=== PATIENT | male | born 1990 | race Two or more races ===

== ENCOUNTER 2022-02-09 14:12 | Emergency (ER) | payer OTHER ==
[~2022-02-09] VITALS: Ht 180.3 cm; Wt 163.3 kg
--- NOTE | 2022-02-09 14:20 | NUR ---
EKG DONE AT BED SIDE
--- NOTE | 2022-02-09 14:25 | NUR ---
RECIVED PT 32 YRS MALE WALKING IN C/O CHEST PAIN SINCE YESTERDAY SEEN BY [facility] YESTERDAY
[2022-02-09] MEDS ORDERED: ASPIRIN 325 MG TABLET ONE ×2 (14:30→14:37)
--- NOTE | 2022-02-09 14:35 | NUR ---
SEEN BY DR. JENSEN
--- NOTE | 2022-02-09 14:45 | NUR ---
BLOOD DROW AND SENT TO LAB
[2022-02-09] MEDS ORDERED: ASPIRIN EC 325 MG TABLET.DR PO ONE (15:00)
[2022-02-09 15:12] LABS: BASOPHILS # (AUTO) 0.1 K/uL (0.0-0.2); BASOPHILS % (AUTO) 1.1 % (0.0-2.0); HEMATOCRIT 44 % (39-51); HEMOGLOBIN 14.9 g/dL (13.5-17.5); LYMPHOCYTES # (AUTO) 2.3 K/uL (0.8-4.8); LYMPHOCYTES % (AUTO) 28.7 % (20.0-44.0); MEAN CORPUSCULAR HGB CONC 34 g/dl (31.0-36.0); MEAN CORPUSCULAR VOLUME 89 fL (80-96); MONOCYTES # (AUTO) 0.8 K/uL (0.1-1.30); MONOCYTES % (AUTO) 10.3 % (2.0-12.0); NEUTROPHILS # (AUTO) 4.6 K/uL (1.8-8.9); NEUTROPHILS % (AUTO) 56.9 % (43.0-81.0); PLATELET COUNT (AUTO) 260 K/uL (150-450); RED BLOOD CELL COUNT(AUTO) 4.94 MIL/uL (4.5-6.0)
[2022-02-09 15:35] LABS: CALCIUM, SERUM 9.3 mg/dL (8.5-10.1); CARBON DIOXIDE 26 mmol/L (21-32); CHLORIDE 101 mmol/L (98-107); CREATININE 0.9 mg/dL (0.6-1.3); GLUCOSE 91 mg/dL (74-106); POTASSIUM 3.5 mmol/L (3.5-5.1); SODIUM SERUM 137 mmol/L (136-145); UREA NITROGEN, BLOOD 10 mg/dL (7-18)
--- NOTE | 2022-02-09 15:40 | NUR ---
RESTING AT THIS TIME NO PAIN
--- NOTE | 2022-02-09 16:50 | NUR ---
VS STABLE NO CHEST PAIN
--- NOTE | 2022-02-09 17:55 | NUR ---
WATING FOR LAB RESULT DINISES CHEST PAIN AT THIS TIME
--- NOTE | 2022-02-09 19:00 | NUR ---
BLOOD DROW BY LAB TACH FOR REPEAT TROPONINE DINESES CHEST PAIN AT THIS TIME
--- NOTE | 2022-02-09 19:47 | NUR ---
HAND OFF TO ANDRÉS JOSEPH
--- NOTE | 2022-02-09 19:48 | NUR ---
RECEIVED REPORT FROM JAKE HSU. PATIENT CAME EARLIER DUE TO CP. PATIENT IS SEEN, [id number]. NO CP AT THE MOMENT BUT WITH CHEST TIGHTNESS. HAS PERIPHERAL LINE ON RIGHT AC G18. PATIENT ATTACHED TO MONITOR. VITALS RECHECKED.
--- NOTE | 2022-02-09 20:17 | NUR ---
IV CANNULA REMOVED
[2022-02-09 20:18] VITALS: BP 155/98
--- NOTE | 2022-02-09 20:18 | NUR ---
Patient discharged to home in stable condition. Written and verbal after care instructions given. Patient verbalizes understanding of instruction.
== END 2022-02-09 20:00 | disposition home or self-care (01) ==
LOC: ER 14:22
DX: R07.89 Other chest pain (principal)
CPT/HCPCS: 36415; 71045-TC; 80048-TC; 84484-TC; 85025-TC